=== PATIENT | female | born 1945 | race Caucasian/White ===

== ENCOUNTER 2016-12-20 15:13 | Emergency (ER) | payer MEDICARE ==
[~2016-12-20] VITALS: Ht 157.5 cm; Wt 104.3 kg
[2016-12-20] MEDS ORDERED: HUMA75IN2 (15:27)
[2016-12-20] MEDS ORDERED: METF500T (15:27)
[2016-12-20] MEDS ORDERED: LEVE1INJ5 (15:27)
[2016-12-20] MEDS ORDERED: CARV25TA (15:27)
[2016-12-20] MEDS ORDERED: BAYE325T12 PO (15:27)
[2016-12-20] MEDS ORDERED: LOSARTAN/HCTZ (15:27)
[2016-12-20] MEDS ORDERED: ZETI10TA2 (15:27)
[2016-12-20] MEDS ORDERED: LABETALOL HCL 100 MG/20 ML VIAL IV STA (15:58)
[2016-12-20 16:02] LABS: BASO % 0.6 % (0.0-1.0); EOS # 0.2 K/mm3 (0.0-0.50); EOS % 3.4 % (0.0-3.0); LARGE UNSTAINED CELL # 0.1 K/mm3 (0.0-0.4); LARGE UNSTAINED CELL % 2.1 % (0.0-4.0); LYMPH # 1.3 K/mm3 (1.5-4.5); MEAN CORPUSCULAR HEMOGLOBIN 31.8 pg (27.0-33.0); MEAN CORPUSCULAR HGB CONC 33.4 g/dl (32.0-36.5); MEAN CORPUSCULAR VOLUME 95.1 fl (80.0-96.0); MONO # 0.3 K/mm3 (0.0-0.8); MONO % 6.5 % (0.0-5.0); NEUTROPHILS # 2.9 K/mm3 (1.8-7.7); NEUTROPHILS % 62.4 % (36.0-66.0); PLATELET COUNT, AUTOMATED 184 k/mm3 (150-450); RED CELL DISTRIBUTION WIDTH 12.7 % (11.5-14.5); WHITE BLOOD COUNT 4.7 K/mm3 (4.0-10.0)
[2016-12-20] MEDS: MECLIZINE 25 MG TABLET PO ONE (16:06)
[2016-12-20] MEDS: ONDANSETRON 4MG/2ML VIAL (J2405) IV ONE (16:06)
--- NOTE | 2016-12-20 16:21 | REP ---
Chest one-view HISTORY: Syncope Comparison: 08/29/2008 The lungs are clear. The heart is upper limits of normal in size. The pulmonary vasculature is normal in appearance. Impression: No acute disease. Signed by Freddy Power MD 12/20/2016 04:13 P
[2016-12-20 16:22] LABS: ANION GAP 9 MEQ/L (8-16); BLOOD UREA NITROGEN 18 MG/DL (7-18); CALCIUM LEVEL 8.3 MG/DL (8.8-10.2); CARBON DIOXIDE LEVEL 28 MEQ/L (21-32); CHLORIDE LEVEL 102 MEQ/L (98-107); GLOMERULAR FILTRATION RATE > 60.0 (>45); GLUCOSE, FASTING 193 MG/DL (80-110); POTASSIUM SERUM 3.9 MEQ/L (3.5-5.1); SODIUM LEVEL 139 MEQ/L (136-145)
--- NOTE | 2016-12-20 16:31 | REP ---
CT Head without contrast HISTORY: Syncope COMPARISON: None There is no intraparenchymal hemorrhage, acute infarct, mass or midline shift. The ventricular system and cortical sulci as well as subarachnoid space in the posterior fossa are dilated consistent with minimal volume loss. There is no extra cerebral collection. There is no fracture. The visualized sinuses are clear. IMPRESSION: Minimal volume loss. Signed by Freddy Power MD 12/20/2016 04:22 P
[2016-12-20] MEDS ORDERED: LOSA100T PO (16:39)
[2016-12-20 17:12] VITALS: BP 177/77
[2016-12-20] MEDS: LOSARTAN 50 MG TAB PO ONE (17:12)
[2016-12-20] MEDS: hydroCHLOROthiazide 12.5 MG CAPSULE PO ONE (17:13)
[2016-12-20] MEDS ORDERED: MECL-68 PO (18:33)
[2016-12-20 18:40] VITALS: BP 193/88
--- NOTE | 2016-12-21 08:48 | ECGEPIP ---
Stationary ECG Study [facility] - ED Test Date: 2016-12-20 Pat Name: ANNA MORENO Department: Room: - Gender: F [employer] Operator: PB : 1945 Requested By: LUCIO Fiore Order Number: [id number] Reading MD: Penelope Andrew Measurements Intervals [place] Rate: 71 P: 50 MN: 163 QRS: -29 QRSD: 91 T: 30 QT: 387 QTc: 422 Interpretive Statements SINUS RHYTHM BORDERLINE LEFT AXIS DEVIATION NO PRIOR FOR COMPARISON Electronically Signed On 12-21-2016 8:47:34 EDT by Penelope Andrew
== END 2016-12-20 18:54 | disposition home or self-care (01) ==
LOC: M ED 16:30
DX: H81.49 Vertigo of central origin, unspecified ear (principal); R94.31 Abnormal electrocardiogram [ECG] [EKG]; I48.91 Unspecified atrial fibrillation; I10 Essential (primary) hypertension; E11.9 Type 2 diabetes mellitus without complications; Z79.899 Other long term (current) drug therapy; Z79.4 Long term (current) use of insulin; Z79.84 Long term (current) use of oral hypoglycemic drugs; Z88.0 Allergy status to penicillin; Z91.048 Other nonmedicinal substance allergy status; Z79.82 Long term (current) use of aspirin
CPT/HCPCS: 70450; 71010; 80048; 82550; 82553; 84484; 85025; 93005; 93041; 94760; 96374; 99284; J2405

== ENCOUNTER → 2021-01-11 | Outpatient (CLI) | payer MEDICARE ==
[~2021-01-11] MED LIST: BAYE325T12 PO; CARV25TA; HUMA75IN2; LEVE1INJ5; LOSA100T8 PO; LOSARTAN/HCTZ; MECL1TAB31 PO; METF500T13; ZETI10TA16
[2021-01-11 16:53] LABS: BASO % 0.4 % (0.0-1.0); EOS # 0.2 10^3/uL (0.0-0.5); EOS % 2.2 % (0.0-3.0); HEMATOCRIT 41.1 % (36.0-47.0); HEMOGLOBIN 13.5 g/dl (12.0-15.5); LYMPH # 1.4 10^3/uL (1.5-5.0); LYMPH % 19.8 % (24.0-44.0); MEAN CORPUSCULAR HEMOGLOBIN 32.3 pg (27.0-33.0); MEAN CORPUSCULAR HGB CONC 32.8 g/dl (32.0-36.5); MEAN CORPUSCULAR VOLUME 98.3 fl (80.0-96.0); MONO # 0.7 10^3/uL (0.0-0.8); NEUTROPHILS % 68.2 % (36.0-66.0); PLATELET COUNT, AUTOMATED 236 10^3/uL (150-450); RED BLOOD COUNT 4.18 10^6/uL (4.00-5.40); WHITE BLOOD COUNT 7.3 10^3/uL (4.0-10.0)
[2021-01-11 17:25] LABS: BLOOD UREA NITROGEN 13 MG/DL (7-18); CALCIUM LEVEL 8.8 MG/DL (8.8-10.2); CARBON DIOXIDE LEVEL 31 MEQ/L (21-32); CHLORIDE LEVEL 104 MEQ/L (98-107); CREATININE FOR GFR 0.66 MG/DL (0.55-1.30); GLOMERULAR FILTRATION RATE > 60.0 (>39); GLUCOSE, FASTING 105 MG/DL (70-100); SODIUM LEVEL 140 MEQ/L (136-145)
== END ==
LOC: M WUC 11:56
PROVIDERS: ATTEND Physician Assistant
DX: K57.32 Diverticulitis of large intestine without perforation or abscess without bleeding (principal); R10.32 Left lower quadrant pain

== ENCOUNTER → 2021-12-14 | Outpatient (CLI) | payer MEDICARE | LOC: M WHC 11:28 | PROVIDERS: ATTEND Nurse Practitioner Adult Health | DX: Z12.31 Encounter for screening mammogram for malignant neoplasm of breast (principal) ==

== ENCOUNTER → 2022-09-05 | Outpatient (REF) | payer MEDICARE | LOC: M LAB REF 11:33 | PROVIDERS: ATTEND Nurse Practitioner Adult Health | DX: E83.52 Hypercalcemia (principal) ==

== ENCOUNTER 2022-11-16 17:48 | Emergency (ER) | payer MEDICARE ==
[~2022-11-16] VITALS: Ht 154.9 cm; Wt 98.6 kg
[~2022-11-16 17:48] MED LIST changes: +INSU100I6; -LEVE1INJ5
[2022-11-16 17:51] VITALS: BP 140/65
[2022-11-16] MEDS ORDERED: METHOCARBAMOL 1,000 MG/10 ML VIAL IV ONE (19:35)
[2022-11-16] MEDS ORDERED: KETOROLAC 30 MG/ML 1ML VIAL IV ONE (20:00)
[2022-11-16 20:01] LABS: BASO % 0.2 % (0.0-1.0); EOS % 0.2 % (0.0-3.0); HEMATOCRIT 36.7 % (36.0-47.0); HEMOGLOBIN 12.4 g/dl (12.0-15.5); LYMPH # 0.8 10^3/uL (1.5-5.0); LYMPH % 8.7 % (24.0-44.0); MEAN CORPUSCULAR HEMOGLOBIN 32.6 pg (27.0-33.0); MEAN CORPUSCULAR HGB CONC 33.8 g/dl (32.0-36.5); MEAN CORPUSCULAR VOLUME 96.6 fl (80.0-96.0); MONO # 1.2 10^3/uL (0.0-0.8); MONO % 13.3 % (2.0-8.0); NEUTROPHILS # 6.8 10^3/uL (1.5-8.5); PLATELET COUNT, AUTOMATED 249 10^3/uL (150-450); WHITE BLOOD COUNT 8.8 10^3/uL (4.0-10.0)
[2022-11-16] MEDS ORDERED: LORazepam 1 MG TAB PO STA (20:09)
[2022-11-16] MEDS ORDERED: LORazepam 2 MG/ML 1ML VIAL IV STA (20:19)
[2022-11-16 20:26] LABS: ALKALINE PHOSPHATASE 106 U/L (46-116); ALT/SGPT 18 U/L (7.0-40); AST/SGOT 18 U/L (<34); BILIRUBIN,DIRECT 0.4 MG/DL (<0.4); BILIRUBIN,TOTAL 1.1 MG/DL (0.3-1.2); BLOOD UREA NITROGEN 28 MG/DL (9-23); CALCIUM LEVEL 8.8 MG/DL (8.3-10.6); CARBON DIOXIDE LEVEL 27 MMOL/L (20-31); CHLORIDE LEVEL 104 MMOL/L (98-107); CREATININE FOR GFR 0.95 MG/DL (0.55-1.30); GLOMERULAR FILTRATION RATE > 60.0 (>39); GLUCOSE, FASTING 79 MG/DL (74-106); POTASSIUM SERUM 3.6 MMOL/L (3.5-5.1); SODIUM LEVEL 140 MMOL/L (136-145); TOTAL PROTEIN 6.6 G/DL (5.7-8.2)
[2022-11-16] MEDS ORDERED: COLA100C5 PO (22:05)
== END 2022-11-16 22:19 | disposition home or self-care (01) ==
LOC: M ED 17:48
DX: M43.17 Spondylolisthesis, lumbosacral region (principal); M48.061 Spinal stenosis, lumbar region without neurogenic claudication; K59.00 Constipation, unspecified; E11.9 Type 2 diabetes mellitus without complications; I10 Essential (primary) hypertension; Z88.0 Allergy status to penicillin; Z91.048 Other nonmedicinal substance allergy status; Z79.82 Long term (current) use of aspirin; Z79.4 Long term (current) use of insulin; Z79.811 Long term (current) use of aromatase inhibitors; Z79.899 Other long term (current) drug therapy
CPT/HCPCS: 72148; 80048; 80076; 85025; 99283; J1885; J2060; J2800

== ENCOUNTER → 2022-11-22 | Outpatient (CLI) | payer MEDICARE ==
[~2022-11-22] MED LIST changes: +COLA100C5 PO
== END ==
LOC: M WUC 13:45
PROVIDERS: ATTEND Internal Medicine
DX: M25.552 Pain in left hip (principal)

== ENCOUNTER → 2023-10-08 | Outpatient (CLI) | payer MEDICARE ==
[~2023-10-08] MED LIST changes: +EZET10TA58; +MECL-209 PO; -MECL1TAB31 PO; -ZETI10TA16
== END ==
LOC: M WUC 12:22
PROVIDERS: ATTEND Nurse Practitioner Adult Health
DX: M79.675 Pain in left toe(s) (principal); M19.072 Primary osteoarthritis, left ankle and foot

== ENCOUNTER → 2023-10-15 | Outpatient (CLI) | payer MEDICARE | LOC: M WHC 11:43 | PROVIDERS: ATTEND Nurse Practitioner Adult Health | DX: Z12.31 Encounter for screening mammogram for malignant neoplasm of breast (principal) ==

== ENCOUNTER → 2024-12-08 | Outpatient (CLI) | payer MEDICARE, OTHER ==
[~2024-12-08] MED LIST changes: -BAYE325T12 PO; +BAYE325T2 PO
== END ==
LOC: M WHC 13:09
PROVIDERS: ATTEND Nurse Practitioner Adult Health
DX: Z12.31 Encounter for screening mammogram for malignant neoplasm of breast (principal)